=== PATIENT | female | born 1955 | race African-American/Black ===

== ENCOUNTER 2017-08-29 10:14 | Emergency (ER) | payer MEDICARE ==
[~2017-08-29] VITALS: Ht 167.6 cm; Wt 129.2 kg
[~2017-08-29 10:14] MED LIST: ADLT ASA LOW81 MG PO; ADULT ASPIRIN E81 MG PO; ALPRAZOLAM0.5 M1 PO; ALPRAZOLAM0.5 MG OR; ALPRAZOLAM0.5 MG PO; CAPOTEN12.5 MG PO; CAPTOPRIL12.5 MG PO; CIPRO500 MG OR; CIPROFLOXACN250 MG PO; COMBIVENT; COMBIVENT INH; CYCLOBENZAPR10 MG PO; DICYCLOMINE10 MG OR; DYAZIDE1 CAP PO; FLEXERIL OR; FLEXERIL10 MG PO; FLEXERIL5 MG PO; FLUARIX QUADRIV1 IN1 IM; GLIPIZIDE ER10 MG PO; GLIPIZIDE XL10 MG PO; HALFPRIN162 MG OR; HUMALOG100 UNIT/M SC; HYDROCO/APAP1 T13 OR; HYDROCO/APAP1 TA9 PO; HYDROCODONE/ACE1 TA1 OR; LANTUS100 MG/ML SC; LISINOPRIL10 MG PO; LORCET10/650 OR; LORTAB 10 PO; MAXZIDE-2537.5 MG/TA PO; MEDROL4 M1 PO; METFORMIN1000 MG PO; METFORMIN500 M1 OR; METFORMIN500 M1 PO; METFORMIN500 MG PO; METOCLOPRAM5 MG PO; METOPROLOL TART50 MG PO; MORPHINE SUL30 M5 PO; NAPROSYN500 MG OR; NEURONTIN300 MG PO; NORCO1 TAB PO; NOVOLIN 70/30 SC; NOVOLIN 701000 UNITS SC; NOVOLOG100 IU/1 M SC; OXYGEN IN; PAROXETINE20 MG PO; PERCOCET 5/325M1 TAB PO; PERCOCET1 TA1 OR; PERCOCET1 TA2 OR; PERCOCET1 TA2 PO; PREDNISONE20 MG OR; PREVACID30 M1 OR; PRILOSEC20 MG PO; PRILOSEC20 MG/CAP PO; PROMETH/COD1 ML OR; PROTONIX40 M2 PO; PULMICORT180 MCG; PULMICORT180 MCG IN; PULMICORT200 MCG IN; QVAR40 MCG IN; RANITIDINE150 MG OR; REGLAN10 MG OR; RESTORIL15 M1 OR; RESTORIL15 M1 PO; RESTORIL15 MG PO; SIMVASTATIN20 MG PO; TEMAZEPAM15 MG PO; TIZANIDINE HCL4 MG PO; TRAMADOL HCL50 MG OR; TRIAM/HCTZ1 CAP OR; TRIAM/HCTZ1 CAP PO; TRIAMT/HCTZ1 TAB PO; TYLENOL PM OR; ULTRAM ER100 MG PO; ZANAFLEX4 MG PO; ZITHROMAX250 MG OR
[2017-08-29] MEDS ORDERED: LORTAB 7.57.5 MG PO (10:25)
[2017-08-29] MEDS ORDERED: AUGMENTIN875TAB PO (10:46)
[2017-08-29] MEDS ORDERED: MOTRIN400 MG PO (10:46)
[2017-08-29 10:47] VITALS: BP 130/80
== END 2017-08-29 10:55 | disposition home or self-care (01) ==
LOC: ED 10:14
DX: K03.81 Cracked tooth (principal); L53.8 Other specified erythematous conditions; E11.9 Type 2 diabetes mellitus without complications; I10 Essential (primary) hypertension

== ENCOUNTER 2017-11-22 15:33 | Emergency (ER) | payer MEDICARE ==
[~2017-11-22] VITALS: Ht 15.2 cm; Wt 133.6 kg
[~2017-11-22 15:33] MED LIST changes: +AUGMENTIN875TAB PO; +LORTAB 7.57.5 MG PO; +MOTRIN400 MG PO
[2017-11-22] MEDS ORDERED: INVOKANA300 MG (16:21)
[2017-11-22] MEDS ORDERED: MOTRIN400 MG PO (16:52)
[2017-11-22] MEDS ORDERED: PENICILLN VK500 MG PO (16:52)
[2017-11-22 16:58] VITALS: BP 131/68
[2017-11-22] MEDS ORDERED: PROTONIX40 M2 PO (16:58)
== END 2017-11-22 17:20 | disposition home or self-care (01) ==
LOC: ED 15:33
DX: K03.81 Cracked tooth (principal); E11.9 Type 2 diabetes mellitus without complications; I10 Essential (primary) hypertension

== ENCOUNTER 2018-10-23 18:57 | Emergency (ER) | payer MEDICARE ==
[~2018-10-23] VITALS: Ht 167.6 cm; Wt 141.0 kg
[~2018-10-23 18:57] MED LIST changes: +INVOKANA300 MG; +PENICILLN VK500 MG PO
[2018-10-23 19:59] LABS: HEMATOCRIT 38.5 % (37.0-47.0); HEMOGLOBIN 11.9 g/dl (12.0-16.0); IMMATURE GRANULOCYTES 0.5 % (0.0-5.0); MEAN CELL VOLUME 79.4 fL CALC (80.0-100.0); MEAN CORPUSCULAR HGB 24.5 pG CALC (26.0-32.0); MEAN CORPUSCULAR HGB CONC 30.9 g/L CALC (32.0-36.0); NEUT# 6.61 thou/uL (2.00-7.15); RED BLOOD COUNT 4.85 mill/uL (4.20-5.60); RED CELL DISTRI WIDTH 14.8 % (11.5-15.5)
[2018-10-23 20:19] LABS: ALBUMIN 4.1 g/dL (3.2-5.0); ALKALINE PHOSPHATASE 106 u/l (38-126); AMYLASE 43 u/l (30-110); ANION GAP 15 (6-22 (CALC)); BILIRUBIN, TOTAL 0.3 mg/dL (0.0-1.4); BUN 18 mg/dL (8-23); BUN/CREATININE RATIO 19 (12-20 (CALC)); CARBON DIOXIDE 30 mmol/l (22-30); CHLORIDE 99 mmol/l (95-108); CREATININE 0.9 mg/dL (0.5-1.0); GFR > 60 ML/MIN (>=60 (CALC)); GFR FOR AFR.AMER. > 60 ML/MIN (>=60 (CALC)); LIPASE 37 u/l (23-300); POTASSIUM 4.1 mmol/l (3.5-5.1); SGOT/AST 21 u/l (9-36); SODIUM 139 mmol/l (137-146); TOTAL PROTEIN 7.9 g/dL (6.3-8.2)
[2018-10-23 20:34] LABS: URINE BILIRUBIN - DIPSTICK NEGATIVE (NEGATIVE); URINE BLOOD DIPSTICK NEGATIVE (NEGATIVE); URINE COLOR YELLOW; URINE GLUCOSE - DIPSTICK NEGATIVE (NEGATIVE); URINE KETONE NEGATIVE (NEGATIVE); URINE LEUK ESTERASE NEGATIVE (NEGATIVE); URINE NITRITE - DIPSTICK NEGATIVE (Negative); URINE PROTEIN - DIPSTICK 100 mg/dL (NEG-TRACE); URINE UROBILINOGEN - DIPSTICK 0.2 E.U./dL (0.2)
[2018-10-23] MEDS ORDERED: PRANDIN1 MG PO (20:41)
[2018-10-23] MEDS ORDERED: HYDRALAZINE25 MG PO (20:42)
[2018-10-23] MEDS ORDERED: ATROVENT H17 MCG/ACT IN (20:44)
[2018-10-23 21:23] LABS: URINE SQUAMOUS EPITHELIAL CELL FEW EPI/hpf (0-FEW)
[2018-10-23] MEDS ORDERED: IBUPROFEN600 MG PO (22:32)
[2018-10-23] MEDS ORDERED: ORPHENADRINE100 MG PO (22:32)
[2018-10-23 23:00] VITALS: BP 168/72
== END 2018-10-23 23:00 | disposition home or self-care (01) ==
LOC: ED 18:57
PROVIDERS: Emergency Medicine
DX: M54.9 Dorsalgia, unspecified (principal); G89.29 Other chronic pain; E11.9 Type 2 diabetes mellitus without complications; I10 Essential (primary) hypertension

== ENCOUNTER 2018-10-24 11:27 | Observation (INO) | payer MEDICARE ==
[2018-10-24] VITALS (7 sets, daily range): BP systolic 90–159; BP diastolic 42–91
[~2018-10-24] VITALS: Ht 167.6 cm; Wt 113.6 kg
[~2018-10-24 11:27] MED LIST changes: +ATROVENT H17 MCG/ACT IN; +HYDRALAZINE25 MG PO; +IBUPROFEN600 MG PO; +ORPHENADRINE100 MG PO; +PRANDIN1 MG PO
--- NOTE | 2018-10-24 11:36 | NUR ---
PT IMMEDIATLY TO TX ROOM
--- NOTE | 2018-10-24 12:26 | NUR ---
PT PROVIDED MEDS PO ORDERED. PT DIFFICULT STICK, NOW WITH 22G TO RFA BY JEROME MONTAÑO.
[2018-10-24 12:36] LABS: HEMATOCRIT 39.6 % (37.0-47.0); HEMOGLOBIN 12.3 g/dl (12.0-16.0); IMMATURE GRANULOCYTES 0.2 % (0.0-5.0); MEAN CELL VOLUME 79.7 fL CALC (80.0-100.0); MEAN CORPUSCULAR HGB 24.7 pG CALC (26.0-32.0); MEAN CORPUSCULAR HGB CONC 31.1 g/L CALC (32.0-36.0); NEUT# 7.03 thou/uL (2.00-7.15); RED BLOOD COUNT 4.97 mill/uL (4.20-5.60)
[2018-10-24 13:09] LABS: ANION GAP 16 (6-22 (CALC)); BUN 18 mg/dL (8-23); BUN/CREATININE RATIO 20 (12-20 (CALC)); CARBON DIOXIDE 30 mmol/l (22-30); CHLORIDE 98 mmol/l (95-108); CREATININE 0.9 mg/dL (0.5-1.0); GFR > 60 ML/MIN (>=60 (CALC)); GFR FOR AFR.AMER. > 60 ML/MIN (>=60 (CALC)); POTASSIUM 4.8 mmol/l (3.5-5.1); SODIUM 138 mmol/l (137-146)
--- NOTE | 2018-10-24 13:37 | NUR ---
PT PROVIDED MEDS FOR PAIN RELIEF PER LOW BACK PAIN.
--- NOTE | 2018-10-24 16:15 | NUR ---
PT ARRIVED FROM ER VIA STRETCHER ACCOMPANIED BY STAFF. IV SITE IS FREE FROM REDNESS OR EDEMA. FAMILY IN THE WAITING ROOM.
--- NOTE | 2018-10-24 16:19 | NUR ---
PT PROVIDED METOPROLOL AND PROTONIX PRIOR TO DEPARTURE TO ICU. PT TAKEN TO ICU-4 ACCOMPANIED BY SEVERAL VISITORS. PT WAS PROVIDED OPPORTUNITY TO LOOK AT SIGNIFICANT OTHER'S BODY ON THE WAY UP, WHICH SHE DID. REPORT WAS TO
--- NOTE | 2018-10-24 16:40 | NUR ---
ASSESSMENT IS COMPLETED: IV SITE IS FREE FROM REDNESS OR EDEMA. HR IS REG,PULSES ARE STRONG X4.ABD OS SOFT WITH ACTIVE BS. BREATH SOUNDS ARE CLEAR, BILATERALLY. CONTINUE TO OBSERVED AND MONITOR.
--- NOTE | 2018-10-24 19:05 | NUR ---
BEDSIDE REPORT RECEIVED FROM ALBERTO CLANCY. PT RESTING IN BED SEMI FOWLERS; ALERT AND ORIENTED. MULTIPLE FAMILY MEMBERS AT BEDSIDE. PT CURRENTLY DENIES ANY CHEST PAIN. RESPIRATIONS EVEN AND UNLABORED ON ROOM AIR. PT AND FAMILY REQUESTING TRANSFER TO [facility] [place] FOR LARGER ROOM. PLAN OF CARE DISCUSSED. PT ENCOURAGED TO VERBALIZE CONCERNS. STATES UNDERSTANDING. SAFETY MEASURES IN PLACE. CALL LIGHT WITHIN REACH.
--- NOTE | 2018-10-24 19:40 | NUR ---
ASSESSMENT COMPLETE. NOTIFIED FAMILY THAT [facility] TRANSFER IS NOT POSSIBLE AT THIS TIME; THEY ARE UNDERSTANDING. SINUS RHYTHM ON CLAMP REMOVER.
--- NOTE | 2018-10-24 21:00 | NUR ---
SENIOR ENGINEERING TECHNICIAN AT BEDSIDE.
--- NOTE | 2018-10-24 21:10 | NUR ---
HS MEDICATIONS ADMINSITERED INCLUDING MOTRIN FOR TEMPERATURE OF 99.8; ROOM ALSO COOLED. 7 UNITS OF NOVOLOG ADMINISTERED FOR BLOOD SUGAR OF 333. PT REPORTS LOWER BACK PAIN AND REQUESTS PAIN MEDICATION AND SOMETHING TO HELP HER RELAX.
--- NOTE | 2018-10-24 21:35 | NUR ---
PT C/O OF RETURNING CHEST PAIN 05/25. RT AT BEDSIDE FOR EKG AND STAT TROP ORDERED. WILL ADMINISTER LORTAB AND ATIVAN AT THIS TIME.
--- NOTE | 2018-10-24 22:13 | NUR ---
SINUS RHYTHM ON CARDIAC MONTIOR. PT STATES THAT HER CHEST PAIN HAS SUBSIDED. SHE IS TEARFUL AND HUSBANDS TODAY; 3 FAMILY MEMBERS AT BEDSIDE. ENCOURAGED TO REST AND RELAX; ATIVAN AND LORTAB GIVEN. IV SITE TO RIGHT WRIST INFILTRATED AND NEW SITE ATTEMPTED X 2 WITHOUT SUCCESS. WILL HAVE ANOTHER NURSE ATTEMPT.
--- NOTE | 2018-10-24 22:52 | NUR ---
FAMILY LEFT BEDSIDE; PT NOW RESTING ON RIGHT SIDE WITH LIGHTS OFF. ALL NEEDS MET. TEARFUL AT TIMES. DAUGHTER ANTONINO LEFT CELL PHONE NUMBER AND REQUESTED WE CALL ANYTIME WITH CHANGES IN CONDITION; PT GAVE VERBAL CONSENT TO GIVEN HER INFORMATION OVER THE PHONE.
[2018-10-25] VITALS (8 sets, daily range): BP systolic 120–159; BP diastolic 50–74
--- NOTE | 2018-10-25 01:07 | NUR ---
PT REQUESTING MEDICATION TO HELP HER SLEEP. RESTORIL GIVEN AT THIS TIME. PT REPOSITIONING SELF IN BED; NOW ON LEFT SIDE. DRINKING A LOT OF WATER. NO OTHER REQUESTS AT THIS TIME.
[2018-10-25 03:16] LABS: ALBUMIN 3.6 g/dL (3.2-5.0); BILIRUBIN, TOTAL 0.4 mg/dL (0.0-1.4); CHOLESTEROL HDL RATIO 3.7 (<4.4 (CALC)); CREATININE 1.2 mg/dL (0.5-1.0); POTASSIUM 4.6 mmol/l (3.5-5.1); TOTAL PROTEIN 7.1 g/dL (6.3-8.2)
[2018-10-25 03:54] LABS: HEMATOCRIT 35.8 % (37.0-47.0); HEMOGLOBIN 11.3 g/dl (12.0-16.0); IMMATURE GRANULOCYTES 0.2 % (0.0-5.0); MEAN CELL VOLUME 79.2 fL CALC (80.0-100.0); MEAN CORPUSCULAR HGB CONC 31.6 g/L CALC (32.0-36.0); NEUT# 4.63 thou/uL (2.00-7.15); RED BLOOD COUNT 4.52 mill/uL (4.20-5.60); RED CELL DISTRI WIDTH 14.9 % (11.5-15.5)
--- NOTE | 2018-10-25 04:11 | NUR ---
PT ASLEEP AT THIS TIME WITH NO SIGNS OF DISTRESS. RESPIRATIONS EVEN AND UNLABORED ON ROOM AIR. IV FLUIDS INFUSING WITHOUT DIFFICULTY; IV SITE APPEARS HEALTHY TO LEFT THUMB.
--- NOTE | 2018-10-25 06:00 | NUR ---
BREATHING TREATMENT COMPLETED BY RT AND EKG.
--- NOTE | 2018-10-25 06:20 | NUR ---
ASSISTED TO BSC X 1 TO VOID 1200ML OF CLEAR DARK YELLOW URINE. ONLY REQUEST AT THIS TIME IS FOR ICE CHIPS.
--- NOTE | 2018-10-25 07:35 | NUR ---
pt awake in bed; no apparent distress noted; assessment completed at this time; pt alert and oriented; admits to lower back pain rating 8/10; appears anxious; denies n/v/cp/sob; resp even and unlabored; lungs clear/ diminished; skin color wnl; ra; hr reg; strong pulses; no edema noted; sr on monitor; abd soft/distended with bs present; no bm noted per auto service writer; no urine to inspect at this time; bsc; #22 in left thumb with ivf infusing without complication; no redness or edema noted at site; plan of care/am meds explained; call light within reach; will continue to monitor
--- NOTE | 2018-10-25 08:11 | NUR ---
Dr Smith present at bedside to assess pt and discuss plan of care
--- NOTE | 2018-10-25 08:16 | NUR ---
awake in bed; no distress noted; sr on monitor; call light within reach; will continue to monitor
--- NOTE | 2018-10-25 10:11 | NUR ---
awake in bed; multiple visitors present at bedside; no apparent distress noted; sr on monitor; call light within reach; will continue to monitoro
--- NOTE | 2018-10-25 10:36 | NUR ---
call placed to Dr Smith in regards to xray report; report reviewed; MD to place orders for discharge
--- NOTE | 2018-10-25 10:56 | NUR ---
call received from Rossy (Dr Smith office) in regards to nuc med stress test; stress test to be performed at office;
--- NOTE | 2018-10-25 11:09 | NUR ---
CALL INTO [facility] AT FOR CLARIFICATION, WANTS PATIENT TO CALL HIS OFFICE TO SCHEDULE NUC MED STRESS TEST.
--- NOTE | 2018-10-25 11:13 | NUR ---
pt and family explained on plan of care; pt states she only have 1 or 2 pain pills left; pt aslo requesting anxiety medication in preparation for Sat; Dr Smith's office called per screenplay writer for prescriptions; spoke with Brittani; per Brittani hydrocodone was filled on 09/27/18 and xanax filled on 10/07; will continue to monitor
--- NOTE | 2018-10-25 12:05 | NUR ---
awake in bed; multiple family present at bedside; no apparent distress noted; sr on monitor; call light within reach; will continue to monitor
--- NOTE | 2018-10-25 12:55 | NUR ---
Discharge instructions given. Patient verbalizes understanding of same. Discharged in stable condition via Wheelchair to Home with family. All belongings sent with pt.
== END 2018-10-25 12:55 | disposition home or self-care (01) ==
LOC: ED 11:27 → ED-I 14:05 → ED 14:23 → ICU 14:24
PROVIDERS: Family Medicine; ADMIT Internal Medicine Geriatric Medicine; ATTEND Internal Medicine Geriatric Medicine
PROC: 3E02340 Introduction of Influenza Vaccine into Muscle, Percutaneous Approach (ICD-10-PCS; principal; 2018-10-25)
PROC: 3E0234Z Introduction of Serum, Toxoid and Vaccine into Muscle, Percutaneous Approach (ICD-10-PCS; 2018-10-25)
DX: R07.9 Chest pain, unspecified (principal); I10 Essential (primary) hypertension; E11.9 Type 2 diabetes mellitus without complications; I25.10 Atherosclerotic heart disease of native coronary artery without angina pectoris; M25.551 Pain in right hip; M54.5 Low back pain; F43.22 Adjustment disorder with anxiety; F41.1 Generalized anxiety disorder; F32.9 Major depressive disorder, single episode, unspecified; E66.01 Morbid (severe) obesity due to excess calories; G89.29 Other chronic pain; W17.89XA Other fall from one level to another, initial encounter; Y93.A1 Activity, exercise machines primarily for cardiorespiratory conditioning; Z63.4 Disappearance and death of family member; Z23 Encounter for immunization

== ENCOUNTER 2019-09-20 15:58 | Emergency (ER) | payer MEDICARE ==
[2019-09-20] MEDS ORDERED: PANTOPRAZOLE SO40 M1 PO (16:29)
[2019-09-20] MEDS ORDERED: FARXIGA10 MG PO (16:30)
[2019-09-20] MEDS ORDERED: LANTUS100 UNIT/M SC ×2 (16:39→16:40)
[2019-09-20] MEDS ORDERED: AMOXICILLIN500 MG PO (16:54)
[2019-09-20 17:06] VITALS: BP 111/73
[2020-04-12] MEDS ORDERED: COMBIGAN0.2 MG/0.5 OU (12:37)
[2020-04-12] MEDS ORDERED: HYDROCO/APAP1 T10 PO (12:37)
[2020-04-12] MEDS ORDERED: METFORMIN500 M2 PO (12:37)
[2020-04-12] MEDS ORDERED: LOSARTAN POTASS25 MG PO (12:38)
[2020-04-12] MEDS ORDERED: REGLAN10 MG PO (12:38)
[2020-04-12] MEDS ORDERED: SOLIQUA 100/331 INJ SC (12:39)
[2020-04-12] MEDS ORDERED: NOVOLOG FLEXPEN SC (12:39)
[2020-04-12] MEDS ORDERED: SIMVASTATIN20 MG PO (12:40)
== END 2019-09-20 17:06 | disposition home or self-care (01) ==
LOC: ED 15:58
DX: K04.7 Periapical abscess without sinus (principal); K02.9 Dental caries, unspecified; M84.68XA Pathological fracture in other disease, other site, initial encounter for fracture; I10 Essential (primary) hypertension; E11.9 Type 2 diabetes mellitus without complications; Z79.4 Long term (current) use of insulin

== ENCOUNTER 2019-11-01 | Emergency (ER) | payer MEDICARE ==
[~2019-11-01] MED LIST changes: +AMOXICILLIN500 MG PO; +FARXIGA10 MG PO; +LANTUS100 UNIT/M SC; +PANTOPRAZOLE SO40 M1 PO
[2019-11-01 06:24] LABS: HEMATOCRIT 40.6 % (37.0-47.0); IMMATURE GRANULOCYTES 0.3 % (0.0-5.0); MEAN CELL VOLUME 79.8 fL CALC (80.0-100.0); MEAN CORPUSCULAR HGB 26.1 pG CALC (26.0-32.0); MEAN CORPUSCULAR HGB CONC 32.8 g/dL CAL (32.0-36.0); NEUT# 5.26 thou/uL (2.00-7.15); RED BLOOD COUNT 5.09 mill/uL (4.20-5.60); RED CELL DISTRI WIDTH 15.2 % (11.5-15.5)
[2019-11-01 06:25] LABS: HEMOGLOBIN 13.3 g/dl (12.0-16.0); URINE BILIRUBIN - DIPSTICK NEGATIVE (NEGATIVE); URINE BLOOD DIPSTICK NEGATIVE (NEGATIVE); URINE COLOR YELLOW; URINE GLUCOSE - DIPSTICK >=1000 mg/dL (NEGATIVE); URINE KETONE TRACE mg/dL (NEGATIVE); URINE NITRITE - DIPSTICK NEGATIVE (Negative); URINE PROTEIN - DIPSTICK NEGATIVE (NEG-TRACE); URINE SPECIFIC GRAVITY 1.015; URINE UROBILINOGEN - DIPSTICK 0.2 E.U./dL (0.2)
[2019-11-01 06:26] LABS: URINE BACTERIA FEW hpf; URINE EPITHELIAL CELLS FEW EPI/hpf (0-FEW); URINE LEUK ESTERASE SMALL (NEGATIVE)
[2019-11-01 06:27] LABS: BARBITURATES NEGATIVE (NEGATIVE); COCAINE NEGATIVE (NEGATIVE); METHADONE NEGATIVE (NEGATIVE); OXCYCODONE NEGATIVE (NEGATIVE); TETRAHYDROCANNABIONOL NEGATIVE (NEGATIVE); TRICYLIC ANTIDEPRESSANTS NEGATIVE (NEGATIVE)
[2019-11-01 06:41] LABS: ALKALINE PHOSPHATASE 111 u/l (38-126); AMYLASE 84 u/l (30-110); ANION GAP 19 (6-22 (CALC)); BUN 19 mg/dL (8-23); BUN/CREATININE RATIO 18 (12-20 (CALC)); CARBON DIOXIDE 26 mmol/l (22-30); CHLORIDE 92 mmol/l (95-108); CREATININE 1.1 mg/dL (0.5-1.0); GFR 50 ML/MIN (>=60 (CALC)); GFR FOR AFR.AMER. > 60 ML/MIN (>=60 (CALC)); LIPASE 300 u/l (23-300); POTASSIUM 4.2 mmol/l (3.5-5.1); SODIUM 133 mmol/l (137-146); TOTAL PROTEIN 8.5 g/dL (6.3-8.2)
[2019-11-01 06:43] LABS: ALBUMIN 4.4 g/dL (3.2-5.0); BILIRUBIN, TOTAL 0.9 mg/dL (0.0-1.4); SGOT/AST 40 u/l (9-36)
[2019-11-01] MEDS ORDERED: MAGNESIUM296 ML/BTL PO ×2 (07:55)
[2019-11-01] MEDS ORDERED: BACTRIM DS1 TAB PO ×2 (07:55)
[2019-11-01] MEDS ORDERED: VOLTAREN - GENE75 MG PO ×2 (07:55)
[2020-04-12] MEDS ORDERED: COMBIGAN0.2 MG/0.5 OU (12:37)
[2020-04-12] MEDS ORDERED: HYDROCO/APAP1 T10 PO (12:37)
[2020-04-12] MEDS ORDERED: METFORMIN500 M2 PO (12:37)
[2020-04-12] MEDS ORDERED: LOSARTAN POTASS25 MG PO (12:38)
[2020-04-12] MEDS ORDERED: REGLAN10 MG PO (12:38)
[2020-04-12] MEDS ORDERED: SOLIQUA 100/331 INJ SC (12:39)
[2020-04-12] MEDS ORDERED: NOVOLOG FLEXPEN SC (12:39)
[2020-04-12] MEDS ORDERED: SIMVASTATIN20 MG PO (12:40)
== END 2019-11-01 08:58 | disposition home or self-care (01) ==
DX: K59.00 Constipation, unspecified (principal); N39.0 Urinary tract infection, site not specified; E11.9 Type 2 diabetes mellitus without complications; I10 Essential (primary) hypertension; Z79.4 Long term (current) use of insulin; Z87.442 Personal history of urinary calculi

== ENCOUNTER 2020-04-19 06:50 | Day surgery (SDC) | payer MEDICARE ==
[~2020-04-19] VITALS: Ht 167.6 cm; Wt 122.5 kg
[~2020-04-19 06:50] MED LIST changes: +BACTRIM DS1 TAB PO; +COMBIGAN0.2 MG/0.5 OU; +HYDROCO/APAP1 T10 PO; +LOSARTAN POTASS25 MG PO; +MAGNESIUM296 ML/BTL PO; +METFORMIN500 M2 PO; +NOVOLOG FLEXPEN SC; +REGLAN10 MG PO; +SOLIQUA 100/331 INJ SC; +VOLTAREN - GENE75 MG PO
[2020-04-19 10:19] VITALS: BP 132/60
== END 2020-04-19 10:18 | disposition home or self-care (01) ==
LOC: ENDO 06:50 → ORM 08:35 → ENDO 08:35 → ORM 09:15 → ENDO 09:30
PROVIDERS: ATTEND Internal Medicine Gastroenterology
PROC: 0DBK8ZX Excision of Ascending Colon, Via Natural or Artificial Opening Endoscopic, Diagnostic (ICD-10-PCS; principal; 2020-04-19)
PROC: 0DBL8ZX Excision of Transverse Colon, Via Natural or Artificial Opening Endoscopic, Diagnostic (ICD-10-PCS; 2020-04-19)
DX: D12.3 Benign neoplasm of transverse colon (principal); K63.5 Polyp of colon; K64.4 Residual hemorrhoidal skin tags; K64.8 Other hemorrhoids; I10 Essential (primary) hypertension; E11.9 Type 2 diabetes mellitus without complications; Z79.84 Long term (current) use of oral hypoglycemic drugs; Z86.010 Personal history of colon polyps; Z20.828 Contact with and (suspected) exposure to other viral communicable diseases

== ENCOUNTER 2021-04-29 20:10 | Emergency (ER) | payer MEDICARE ==
[~2021-04-29] VITALS: Ht 167.6 cm; Wt 125.0 kg
[2021-04-29 21:25] LABS: IMMATURE GRANULOCYTES 0.2 % (0.0-5.0); MEAN CELL VOLUME 80.6 fL CALC (80.0-100.0); MEAN CORPUSCULAR HGB 25.5 pG CALC (26.0-32.0); MEAN CORPUSCULAR HGB CONC 31.7 g/dL CAL (32.0-36.0); NEUT# 6.23 thou/uL (2.00-7.15); RED BLOOD COUNT 4.27 mill/uL (4.20-5.60)
[2021-04-29 21:27] LABS: HEMATOCRIT 34.4 % (37.0-47.0); HEMOGLOBIN 10.9 g/dl (12.0-16.0)
[2021-04-29 21:43] LABS: ACT PARTIAL THROMBO TIME 28.9 SECONDS (20.0-32.5); ALBUMIN 3.9 g/dL (3.2-5.0); ALKALINE PHOSPHATASE 98 u/l (38-126); ANION GAP 17 (6-22 (CALC)); BUN 31 mg/dL (8-23); BUN/CREATININE RATIO 27 (12-20 (CALC)); CARBON DIOXIDE 25 mmol/l (22-30); CHLORIDE 101 mmol/l (95-108); CREATININE 1.1 mg/dL (0.5-1.0); ETHYL ALCOHOL 0 mg/dl (0-30); GFR 50 ML/MIN (>=60 (CALC)); GFR FOR AFR.AMER. 60 ML/MIN (>=60 (CALC)); LIPASE 75 u/l (23-300); MAGNESIUM 2.1 mg/dL (1.6-2.3); POTASSIUM 4.7 mmol/l (3.5-5.1); PROTHROMBIN TIME 10.7 SECONDS (9.0-12.5); SGOT/AST 24 u/l (9-36); SODIUM 138 mmol/l (137-146); TOTAL PROTEIN 7.8 g/dL (6.3-8.2)
[2021-04-29 22:19] LABS: URINE BILIRUBIN - DIPSTICK NEGATIVE (NEGATIVE); URINE BLOOD DIPSTICK NEGATIVE (NEGATIVE); URINE COLOR YELLOW; URINE GLUCOSE - DIPSTICK NEGATIVE (NEGATIVE); URINE KETONE NEGATIVE (NEGATIVE); URINE PROTEIN - DIPSTICK NEGATIVE (NEG-TRACE); URINE UROBILINOGEN - DIPSTICK 0.2 E.U./dL (0.2)
[2021-04-29 22:20] LABS: URINE LEUK ESTERASE SMALL (NEGATIVE); URINE NITRITE - DIPSTICK NEGATIVE (Negative)
[2021-04-29 22:24] LABS: URINE BACTERIA FEW hpf; URINE SQUAMOUS EPITHELIAL CELL MODERATE EPI/hpf (0-FEW)
[2021-04-29] MEDS ORDERED: BACTRIM DS1 TAB PO (22:37)
[2021-04-29 22:40] VITALS: BP 173/78
== END 2021-04-29 22:50 | disposition home or self-care (01) ==
LOC: ED 20:10
DX: E11.649 Type 2 diabetes mellitus with hypoglycemia without coma (principal); S70.02XA Contusion of left hip, initial encounter; S16.1XXA Strain of muscle, fascia and tendon at neck level, initial encounter; N39.0 Urinary tract infection, site not specified; I10 Essential (primary) hypertension; J45.909 Unspecified asthma, uncomplicated; W19.XXXA Unspecified fall, initial encounter; Z79.4 Long term (current) use of insulin; Z20.822 Contact with and (suspected) exposure to COVID-19
CPT/HCPCS: Q9967

== ENCOUNTER 2022-05-17 10:12 | Emergency (ER) | payer MEDICARE ==
[~2022-05-17] VITALS: Ht 167.6 cm; Wt 104.5 kg
[2022-05-17 10:28] VITALS: BP 157/103
[2022-05-17 10:31] VITALS: BP 148/68
[2022-05-17] MEDS ORDERED: HYDROCO/APAP1 T10 PO (10:40)
[2022-05-17 11:00] VITALS: BP 142/86
[2022-05-17 11:22] VITALS: BP 142/86
== END 2022-05-17 11:25 | disposition home or self-care (01) ==
LOC: ED 10:12
DX: G89.29 Other chronic pain (principal); M54.50 Low back pain, unspecified; I10 Essential (primary) hypertension; E11.9 Type 2 diabetes mellitus without complications; J45.909 Unspecified asthma, uncomplicated; Z79.84 Long term (current) use of oral hypoglycemic drugs; Z79.4 Long term (current) use of insulin

== ENCOUNTER 2022-06-19 11:28 | Emergency (ER) | payer MEDICARE ==
[~2022-06-19] VITALS: Ht 167.6 cm; Wt 132.7 kg
[2022-06-19] VITALS (12 sets, daily range): BP systolic 98–157; BP diastolic 49–119
[2022-06-19 12:13] LABS: HEMATOCRIT 34.2 % (37.0-47.0); HEMOGLOBIN 10.9 g/dl (12.0-16.0); IMMATURE GRANULOCYTES 0.2 % (0.0-5.0); MEAN CELL VOLUME 78.6 fL CALC (80.0-100.0); MEAN CORPUSCULAR HGB 25.1 pG CALC (26.0-32.0); MEAN CORPUSCULAR HGB CONC 31.9 g/dL CAL (32.0-36.0); RED BLOOD COUNT 4.35 mill/uL (4.20-5.60); RED CELL DISTRI WIDTH 14.8 % (11.5-15.5)
[2022-06-19 12:25] LABS: CREATININE 1.2 mg/dL (0.5-1.0); TOTAL PROTEIN 7.9 g/dL (6.3-8.2)
[2022-06-19 12:38] LABS: BILIRUBIN, TOTAL 0.3 mg/dL (0.0-1.4)
[2022-06-19 15:14] LABS: URINE BILIRUBIN - DIPSTICK NEGATIVE (NEGATIVE); URINE BLOOD DIPSTICK NEGATIVE (NEGATIVE); URINE COLOR YELLOW; URINE GLUCOSE - DIPSTICK NEGATIVE (NEGATIVE); URINE KETONE NEGATIVE (NEGATIVE); URINE PROTEIN - DIPSTICK 100 mg/dL (NEG-TRACE); URINE UROBILINOGEN - DIPSTICK 0.2 E.U./dL (0.2)
[2022-06-19 15:17] LABS: URINE LEUK ESTERASE MODERATE (NEGATIVE); URINE NITRITE - DIPSTICK NEGATIVE (Negative)
[2022-06-19 15:20] LABS: URINE BACTERIA FEW hpf; URINE SQUAMOUS EPITHELIAL CELL MANY EPI/hpf (0-FEW)
[2022-06-19] MEDS ORDERED: NITROFURANTN100 M2 PO (16:09)
== END 2022-06-19 16:58 | disposition home or self-care (01) ==
LOC: ED 11:28
PROVIDERS: Family Medicine
DX: N39.0 Urinary tract infection, site not specified (principal); M54.50 Low back pain, unspecified; M54.6 Pain in thoracic spine; G89.29 Other chronic pain; I10 Essential (primary) hypertension; E11.9 Type 2 diabetes mellitus without complications; J45.909 Unspecified asthma, uncomplicated; Z79.84 Long term (current) use of oral hypoglycemic drugs; Z79.4 Long term (current) use of insulin; Z79.891 Long term (current) use of opiate analgesic
CPT/HCPCS: Q9967

== ENCOUNTER 2022-06-20 19:39 | Emergency (ER) | payer MEDICARE ==
[~2022-06-20] VITALS: Ht 167.6 cm; Wt 132.0 kg
[~2022-06-20 19:39] MED LIST changes: +NITROFURANTN100 M2 PO
[2022-06-20 20:21] LABS: HEMATOCRIT 32.8 % (37.0-47.0); HEMOGLOBIN 10.3 g/dl (12.0-16.0); IMMATURE GRANULOCYTES 0.1 % (0.0-5.0); MEAN CELL VOLUME 80.6 fL CALC (80.0-100.0); MEAN CORPUSCULAR HGB 25.3 pG CALC (26.0-32.0); MEAN CORPUSCULAR HGB CONC 31.4 g/dL CAL (32.0-36.0); NEUT# 3.64 thou/uL (2.00-7.15); RED BLOOD COUNT 4.07 mill/uL (4.20-5.60); RED CELL DISTRI WIDTH 15.1 % (11.5-15.5)
[2022-06-20 20:35] LABS: ALBUMIN 3.9 g/dL (3.2-5.0); ALKALINE PHOSPHATASE 98 u/l (38-126); ANION GAP 14 (6-22 (CALC)); BILIRUBIN, TOTAL 0.2 mg/dL (0.0-1.4); BUN 26 mg/dL (8-23); BUN/CREATININE RATIO 12 (12-20 (CALC)); CARBON DIOXIDE 26 mmol/l (22-30); CHLORIDE 104 mmol/l (95-108); GFR FOR AFR.AMER. 27 ML/MIN (>=60 (CALC)); GFR OTHER RACES 22 ML/MIN (>=60 (CALC)); POTASSIUM 4.6 mmol/l (3.5-5.1); SGOT/AST 34 u/l (9-36); SODIUM 139 mmol/l (137-146); TOTAL PROTEIN 7.6 g/dL (6.3-8.2)
[2022-06-20 20:37] LABS: D-DIMER 1.77 mg/L (0.19-0.60)
[2022-06-20 20:38] LABS: CREATININE 2.2 mg/dL (0.5-1.0)
[2022-06-20 20:41] LABS: INTERNATIONAL NORMALIZED RATIO 1.1 RATIO (0.7-1.3)
[2022-06-20 20:47] LABS: MYOGLOBIN 217 ng/mL (0 - 62)
[2022-06-20 23:47] VITALS: BP 148/84
== END 2022-06-21 00:18 | disposition home or self-care (01) ==
LOC: ED 19:39
PROVIDERS: Family Medicine
DX: M54.6 Pain in thoracic spine (principal); M54.50 Low back pain, unspecified; G89.29 Other chronic pain; I10 Essential (primary) hypertension; E11.9 Type 2 diabetes mellitus without complications; J45.909 Unspecified asthma, uncomplicated; Z79.84 Long term (current) use of oral hypoglycemic drugs; Z79.4 Long term (current) use of insulin

== ENCOUNTER 2024-08-09 12:16 | Emergency (ER) | payer MEDICARE ==
[~2024-08-09] VITALS: Ht 167.6 cm; Wt 108.0 kg
[2024-08-09] VITALS (11 sets, daily range): BP systolic 89–194; BP diastolic 63–127
[~2024-08-09 12:16] MED LIST changes: +PERCOCET1 TA4 PO
[2024-08-09] MEDS ORDERED: SODIUM CHLORIDE 0.9% 1,000 ML IV ONE (12:30)
[2024-08-09] MEDS ORDERED: KETOROLAC TROMETHAMINE 30 MG/ML SDV IV ONE (12:30)
[2024-08-09] MEDS ORDERED: LORazepam 2 MG/ML IV ONE (12:30)
[2024-08-09] MEDS ORDERED: HYDROmorphone HCL 2 MG/AMP IV ONE ×2 (12:50→14:20)
[2024-08-09 12:53] LABS: BASO% 0.3 % (0-3); EOS% 0.3 % (0-8); HEMATOCRIT 30.2 % (37.0-47.0); HEMOGLOBIN 9.4 g/dl (12.0-16.0); IMMATURE GRANULOCYTES 0.2 % (0.0-5.0); LYMPH% 22.6 % (15-41); MEAN CELL VOLUME 81.8 fL CALC (80.0-100.0); MEAN CORPUSCULAR HGB 25.5 pG CALC (26.0-32.0); MEAN CORPUSCULAR HGB CONC 31.1 g/dL CAL (32.0-36.0); MONO% 8.2 % (2-13); NEUT# 8.01 thou/uL (2.00-7.15); NEUT% 68.4 % (42-76); RED BLOOD COUNT 3.69 mill/uL (4.20-5.60); RED CELL DISTRI WIDTH 15.6 % (11.5-15.5)
[2024-08-09 13:04] LABS: CREATININE 1.2 mg/dL (0.5-1.0); POTASSIUM 4.7 mmol/l (3.5-5.1)
[2024-08-09] MEDS ORDERED: METHOCARBAMOL 1,000 MG/10 ML VIAL IV ONE (13:55)
[2024-08-09 14:53] LABS: URINE BILIRUBIN - DIPSTICK Negative (NEGATIVE); URINE BLOOD DIPSTICK Negative (NEGATIVE); URINE COLOR Yellow; URINE GLUCOSE - DIPSTICK Negative (NEGATIVE); URINE KETONE 15 mg/dL (NEGATIVE); URINE LEUK ESTERASE Moderate (NEGATIVE); URINE NITRITE - DIPSTICK Negative (Negative); URINE PH 8.5 (4.5-8.0); URINE PROTEIN - DIPSTICK 100 mg/dL (NEG-TRACE); URINE SPECIFIC GRAVITY 1.015; URINE UROBILINOGEN - DIPSTICK 0.2 E.U./dL (0.2)
[2024-08-09 14:57] LABS: URINE BACTERIA FEW hpf; URINE RBC 0-2 RBC/hpf (0-5); URINE SQUAMOUS EPITHELIAL CELL FEW EPI/hpf (0-FEW)
[2024-08-09] MEDS ORDERED: BACTRIM DS1 TAB PO (15:04)
[2024-08-09] MEDS ORDERED: METHOCARBAMOL500 MG PO (15:04)
== END 2024-08-09 16:09 | disposition home or self-care (01) ==
LOC: ED 12:16
PROVIDERS: Family Medicine
DX: M54.6 Pain in thoracic spine (principal); G89.29 Other chronic pain; N39.0 Urinary tract infection, site not specified; I10 Essential (primary) hypertension; E11.9 Type 2 diabetes mellitus without complications; Z79.84 Long term (current) use of oral hypoglycemic drugs; Z79.891 Long term (current) use of opiate analgesic
CPT/HCPCS: J1171; J2060; J2800

== ENCOUNTER 2024-08-17 11:39 | Observation (INO) | payer MEDICARE ==
[2024-08-17] VITALS (27 sets, daily range): BP systolic 94–215; BP diastolic 70–142
[~2024-08-17] VITALS: Ht 167.6 cm; Wt 96.2 kg
[~2024-08-17 11:39] MED LIST changes: +METHOCARBAMOL500 MG PO
[2024-08-17] MEDS ORDERED: PROMETHAZINE HCL 25 MG/ML AMP IM ONE (11:45)
[2024-08-17 12:07] LABS: BASO% 0.1 % (0-3); EOS% 0.3 % (0-8); HEMATOCRIT 31.8 % (37.0-47.0); HEMOGLOBIN 10.7 g/dl (12.0-16.0); IMMATURE GRANULOCYTES 0.8 % (0.0-5.0); LYMPH% 31.6 % (15-41); MEAN CELL VOLUME 77.4 fL CALC (80.0-100.0); MEAN CORPUSCULAR HGB CONC 33.6 g/dL CAL (32.0-36.0); MONO% 8.8 % (2-13); NEUT# 4.31 thou/uL (2.00-7.15); NEUT% 58.4 % (42-76); RED BLOOD COUNT 4.11 mill/uL (4.20-5.60); RED CELL DISTRI WIDTH 15.3 % (11.5-15.5)
[2024-08-17 12:24] LABS: ALKALINE PHOSPHATASE 74 u/l (38-126); ANION GAP 17 (6-22 (CALC)); BUN 18 mg/dL (8-23); BUN/CREATININE RATIO 9 (12-20 (CALC)); CARBON DIOXIDE 20 mmol/l (22-30); CHLORIDE 104 mmol/l (95-108); CREATININE 2.1 mg/dL (0.5-1.0); ESTIMATED GFR 25 ML/MIN (>=90 (CALC)); LIPASE 46 u/l (23-300); POTASSIUM 4.5 mmol/l (3.5-5.1); SGOT/AST 46 u/l (9-36); SODIUM 136 mmol/l (137-146); TOTAL PROTEIN 7.4 g/dL (6.3-8.2)
[2024-08-17 12:37] LABS: BILIRUBIN, TOTAL 0.8 mg/dL (0.02-1.3)
[2024-08-17] MEDS ORDERED: LABETALOL HCL 100 MG/20 ML VIAL IV ONE ×2 (13:15→16:35)
[2024-08-17 14:50] LABS: URINE BILIRUBIN - DIPSTICK Negative (NEGATIVE); URINE BLOOD DIPSTICK Negative (NEGATIVE); URINE GLUCOSE - DIPSTICK Negative (NEGATIVE); URINE KETONE Negative (NEGATIVE); URINE NITRITE - DIPSTICK Negative (Negative); URINE PH 8.5 (4.5-8.0); URINE PROTEIN - DIPSTICK 100 mg/dL (NEG-TRACE); URINE SPECIFIC GRAVITY 1.015; URINE UROBILINOGEN - DIPSTICK 0.2 E.U./dL (0.2)
[2024-08-17 14:52] LABS: URINE BACTERIA FEW hpf; URINE COLOR Yellow; URINE EPITHELIAL CELLS MODERATE EPI/hpf (0-FEW); URINE LEUK ESTERASE Small (NEGATIVE); URINE MUCUS MODERATE hpf (NONE-FEW)
[2024-08-17] MEDS ORDERED: cefTRIAXone SODIUM 2 GM in SODIUM CHLORIDE 0.9% 100 ML IV ONE (15:45)
[2024-08-17] MEDS ORDERED: MAGNESIUM HYDROXIDE 30 ML UDC PO PRN (16:15)
[2024-08-17] MEDS ORDERED: SODIUM CHLORIDE 0.9% 1,000 ML IV PRN (16:15)
[2024-08-17] MEDS ORDERED: Heparin SODIUM (Porcine) 5,000 UNITS/ML SDV SC SCH (16:15)
[2024-08-17] MEDS ORDERED: ONDANSETRON HCl 4 MG/2 ML SDV IV PRN (16:15)
[2024-08-17] MEDS ORDERED: ACETAMINOPHEN 325 MG/TAB PO PRN (16:15)
[2024-08-17] MEDS ORDERED: MORPHINE SULFATE 4 MG/ML VIAL IV ONE (16:20)
[2024-08-17] MEDS ORDERED: ONDANSETRON HCl 4 MG/2 ML SDV IV ONE (16:20)
[2024-08-17] MEDS ORDERED: ASPIRIN EC 81 MG/TAB PO SCH (20:21)
[2024-08-17] MEDS ORDERED: PANTOPRAZOLE SODIUM Sesquihydr 40 MG/TAB PO SCH (20:21)
[2024-08-17] MEDS ORDERED: LOSARTAN Potassium 25 MG/TAB PO SCH (20:31)
[2024-08-17] MEDS ORDERED: DEXTROSE 250 ML IV PRN (20:35)
[2024-08-17] MEDS ORDERED: IPRATROPIUM-Albuterol 0.5MG-2.5MG/3 ML NEB PRN (20:35)
[2024-08-17] MEDS ORDERED: INSULIN LISPRO 100 UNITS/ML ML SC SCH (21:00)
[2024-08-17] MEDS ORDERED: hydrALAZINE HCL 25 MG/TAB PO SCH (21:00)
[2024-08-17] MEDS ORDERED: oxyCODONE HCL 15 MG/TAB PO SCH (22:25)
[2024-08-18] VITALS (7 sets, daily range): BP systolic 97–145; BP diastolic 52–75
[2024-08-18 06:55] LABS: BASO% 0.4 % (0-3); HEMATOCRIT 31.7 % (37.0-47.0); HEMOGLOBIN 10.3 g/dl (12.0-16.0); IMMATURE GRANULOCYTES 0.5 % (0.0-5.0); MEAN CELL VOLUME 79.3 fL CALC (80.0-100.0); MEAN CORPUSCULAR HGB 25.8 pG CALC (26.0-32.0); MEAN CORPUSCULAR HGB CONC 32.5 g/dL CAL (32.0-36.0); MONO% 7.3 % (2-13); NEUT# 3.55 thou/uL (2.00-7.15); NEUT% 47.8 % (42-76); RED CELL DISTRI WIDTH 15.6 % (11.5-15.5)
[2024-08-18 07:03] LABS: ALBUMIN 3.2 g/dL (3.2-5.0); BILIRUBIN, TOTAL 0.3 mg/dL (0.02-1.3); CREATININE 2.7 mg/dL (0.5-1.0); MAGNESIUM 1.2 mg/dL (1.6-2.3); POTASSIUM 4.6 mmol/l (3.5-5.1); TOTAL PROTEIN 6.1 g/dL (6.3-8.2)
[2024-08-18] MEDS ORDERED: oxyCODONE HCL 15 MG/TAB PO SCH (09:00)
[2024-08-18] MEDS ORDERED: MAGNESIUM SULFATE HEPTAHYDRATE 100 ML IV SCH (09:30)
[2024-08-19 04:16] VITALS: BP 131/75
[2024-08-19 05:34] LABS: BASO% 0.5 % (0-3); EOS% 2.9 % (0-8); HEMATOCRIT 27.6 % (37.0-47.0); LYMPH% 40.9 % (15-41); MEAN CELL VOLUME 80.7 fL CALC (80.0-100.0); MEAN CORPUSCULAR HGB 26.3 pG CALC (26.0-32.0); MEAN CORPUSCULAR HGB CONC 32.6 g/dL CAL (32.0-36.0); MONO% 8.8 % (2-13); NEUT# 2.86 thou/uL (2.00-7.15); NEUT% 46.9 % (42-76); RED BLOOD COUNT 3.42 mill/uL (4.20-5.60); RED CELL DISTRI WIDTH 15.6 % (11.5-15.5)
[2024-08-19 05:37] LABS: ALBUMIN 2.8 g/dL (3.2-5.0); BILIRUBIN, TOTAL 0.3 mg/dL (0.02-1.3); CREATININE 2.2 mg/dL (0.5-1.0); POTASSIUM 4.9 mmol/l (3.5-5.1); TOTAL PROTEIN 5.5 g/dL (6.3-8.2)
[2024-08-19 05:38] LABS: MAGNESIUM 2.2 mg/dL (1.6-2.3)
[2024-08-19 07:05] VITALS: BP 110/62
[2024-08-19 10:28] VITALS: BP 125/63
[2024-08-19] MEDS ORDERED: Meropenem 1 GM in SODIUM CHLORIDE 0.9% 100 ML IV SCH (13:00)
[2024-08-19 14:47] VITALS: BP 132/76
[2024-08-19 19:34] VITALS: BP 151/58
[2024-08-19 23:18] VITALS: BP 154/62
[2024-08-20 03:52] VITALS: BP 169/70
[2024-08-20 07:14] VITALS: BP 210/92
[2024-08-20 10:40] VITALS: BP 147/66
[2024-08-20 12:06] LABS: POTASSIUM 4.8 mmol/l (3.5-5.1)
[2024-08-20 12:30] LABS: CREATININE 1.1 mg/dL (0.5-1.0)
[2024-08-20 14:49] VITALS: BP 165/94
[2024-08-20] MEDS ORDERED: oxyCODONE HCL 5 MG/TAB PO SCH (15:00)
[2024-08-20 19:11] VITALS: BP 182/66
[2024-08-20 23:45] VITALS: BP 182/73
[2024-08-21 04:00] VITALS: BP 175/84
[2024-08-21 05:10] LABS: HEMOGLOBIN 8.7 g/dl (12.0-16.0); MEAN CELL VOLUME 81.1 fL CALC (80.0-100.0); MEAN CORPUSCULAR HGB 26.1 pG CALC (26.0-32.0); MEAN CORPUSCULAR HGB CONC 32.2 g/dL CAL (32.0-36.0); RED BLOOD COUNT 3.33 mill/uL (4.20-5.60); RED CELL DISTRI WIDTH 15.7 % (11.5-15.5)
[2024-08-21 05:38] LABS: ALBUMIN 2.8 g/dL (3.2-5.0); BILIRUBIN, TOTAL 0.3 mg/dL (0.02-1.3); CREATININE 0.8 mg/dL (0.5-1.0); POTASSIUM 4.8 mmol/l (3.5-5.1); TOTAL PROTEIN 5.5 g/dL (6.3-8.2)
[2024-08-21 07:17] VITALS: BP 132/68
[2024-08-21 11:30] VITALS: BP 177/75
[2024-08-21] MEDS ORDERED: Meropenem 1 GM in SODIUM CHLORIDE 0.9% 100 ML IV SCH (12:00)
[2024-08-21 15:14] VITALS: BP 180/53
[2024-08-21] MEDS ORDERED: ERTAPENEM1 G1 IV (15:26)
[2024-08-21 15:28] VITALS: BP 180/53
[2024-08-21] MEDS ORDERED: LOSARTAN Potassium 50 MG/TAB PO SCH (17:00)
[2024-08-21 20:15] VITALS: BP 171/49
[2024-08-22] VITALS (7 sets, daily range): BP systolic 178–213; BP diastolic 69–99
[2024-08-22 05:35] LABS: BASO% 0.5 % (0-3); EOS% 3.8 % (0-8); HEMATOCRIT 29.2 % (37.0-47.0); HEMOGLOBIN 9.2 g/dl (12.0-16.0); IMMATURE GRANULOCYTES 0.3 % (0.0-5.0); LYMPH% 34.6 % (15-41); MEAN CELL VOLUME 81.8 fL CALC (80.0-100.0); MEAN CORPUSCULAR HGB 25.8 pG CALC (26.0-32.0); MEAN CORPUSCULAR HGB CONC 31.5 g/dL CAL (32.0-36.0); MONO% 6.4 % (2-13); NEUT# 3.59 thou/uL (2.00-7.15); NEUT% 54.4 % (42-76); RED BLOOD COUNT 3.57 mill/uL (4.20-5.60); RED CELL DISTRI WIDTH 15.8 % (11.5-15.5)
[2024-08-22 06:08] LABS: ALBUMIN 3.2 g/dL (3.2-5.0); BILIRUBIN, TOTAL 0.3 mg/dL (0.02-1.3); POTASSIUM 4.5 mmol/l (3.5-5.1); TOTAL PROTEIN 6.2 g/dL (6.3-8.2)
[2024-08-22 06:12] LABS: MAGNESIUM 1.3 mg/dL (1.6-2.3)
[2024-08-22] MEDS ORDERED: METOPROLOL TARTRATE 50 MG/TAB PO SCH (06:18)
[2024-08-22] MEDS ORDERED: hydrALAZINE HCL 20 MG/ML VIAL(1 ML) IV PRN (06:20)
[2024-08-22] MEDS ORDERED: MAGNESIUM SULFATE HEPTAHYDRATE 100 ML IV SCH (08:30)
[2024-08-22] MEDS ORDERED: LOSARTAN Potassium 50 MG/TAB PO SCH (09:00)
[2024-08-22] MEDS ORDERED: amLODIPine BESYLATE 5 MG/TAB PO SCH (14:00)
[2024-08-23 00:31] VITALS: BP 189/79
[2024-08-23 04:53] VITALS: BP 182/72
[2024-08-23 05:55] LABS: BASO% 0.4 % (0-3); EOS% 3.6 % (0-8); HEMATOCRIT 27.9 % (37.0-47.0); IMMATURE GRANULOCYTES 0.1 % (0.0-5.0); LYMPH% 34.3 % (15-41); MEAN CELL VOLUME 81.6 fL CALC (80.0-100.0); MEAN CORPUSCULAR HGB 26.3 pG CALC (26.0-32.0); MEAN CORPUSCULAR HGB CONC 32.3 g/dL CAL (32.0-36.0); MONO% 7.9 % (2-13); NEUT# 3.58 thou/uL (2.00-7.15); NEUT% 53.7 % (42-76); RED BLOOD COUNT 3.42 mill/uL (4.20-5.60); RED CELL DISTRI WIDTH 15.7 % (11.5-15.5)
[2024-08-23 06:11] LABS: ALBUMIN 2.9 g/dL (3.2-5.0); BILIRUBIN, TOTAL 0.3 mg/dL (0.02-1.3); CREATININE 0.7 mg/dL (0.5-1.0); MAGNESIUM 1.4 mg/dL (1.6-2.3); POTASSIUM 4.1 mmol/l (3.5-5.1); TOTAL PROTEIN 5.8 g/dL (6.3-8.2)
[2024-08-23 07:35] VITALS: BP 172/58
[2024-08-23 07:36] VITALS: BP 170/71
[2024-08-23] MEDS ORDERED: MAGNESIUM SULFATE HEPTAHYDRATE 100 ML IV SCH (09:00)
[2024-08-23] MEDS ORDERED: hydroCHLOROthiazide 12.5 MG/CAP PO SCH (15:00)
[2024-08-23 16:28] VITALS: BP 139/68
[2024-08-23 18:45] VITALS: BP 176/75
[2024-08-23] MEDS ORDERED: METOPROLOL TARTRATE 50 MG/TAB PO SCH (21:00)
[2024-08-24 04:59] VITALS: BP 141/81
[2024-08-24 07:00] VITALS: BP 195/82
[2024-08-24 10:32] VITALS: BP 153/89
[2024-08-24] MEDS ORDERED: AMLODIPINE BESYL5 MG PO (11:24)
[2024-08-24] MEDS ORDERED: METOPROL TAR100 MG PO (11:26)
[2024-08-24] MEDS ORDERED: COZAAR100 MG PO (11:27)
[2024-08-24] MEDS ORDERED: HYDROCHLOROTH12.5 MG PO (11:27)
== END 2024-08-24 13:45 ==
LOC: ED 11:39 → ED-I 15:30 → ED 15:49 → MS2 15:50
PROVIDERS: Family Medicine; Nurse Practitioner Family; ADMIT Internal Medicine; ATTEND Internal Medicine
DX: N39.0 Urinary tract infection, site not specified (principal); N17.9 Acute kidney failure, unspecified; R11.2 Nausea with vomiting, unspecified; I12.9 Hypertensive chronic kidney disease with stage 1 through stage 4 chronic kidney disease, or unspecified chronic kidney disease; E11.22 Type 2 diabetes mellitus with diabetic chronic kidney disease; N18.9 Chronic kidney disease, unspecified; I25.10 Atherosclerotic heart disease of native coronary artery without angina pectoris; E03.9 Hypothyroidism, unspecified; B96.20 Unspecified Escherichia coli [E. coli] as the cause of diseases classified elsewhere; Z16.12 Extended spectrum beta lactamase (ESBL) resistance; G89.29 Other chronic pain; M54.6 Pain in thoracic spine; Z79.891 Long term (current) use of opiate analgesic; Z79.4 Long term (current) use of insulin
CPT/HCPCS: J0696; J1644; J1815; J1920; J2405; J2550; J3475